=== PATIENT | male | born 1960 | race Caucasian/White ===

== ENCOUNTER 2018-03-11 16:16 | Emergency (ER) | payer OTHER ==
[~2018-03-11] VITALS: Ht 170.2 cm; Wt 83.6 kg
[2018-03-11] MEDS ORDERED: AMLODIPINE BESYL5 MG PO (16:41)
[2018-03-11] MEDS ORDERED: LOSARTAN POTAS100 MG PO (16:41)
[2018-03-11] MEDS ORDERED: ASPIR 8181 M1 PO (16:42)
[2018-03-11] MEDS ORDERED: MOTRIN600 MG PO (19:13)
[2018-03-11] MEDS ORDERED: KEFLEX500 MG PO (19:13)
[2018-03-11] MEDS ORDERED: ULTRAM50 MG PO (19:13)
[2018-03-11 19:22] VITALS: BP 138/84
== END 2018-03-11 19:23 | disposition home or self-care (01) ==
LOC: EME 16:16
DX: L02.511 Cutaneous abscess of right hand (principal); L03.113 Cellulitis of right upper limb; I10 Essential (primary) hypertension; E78.5 Hyperlipidemia, unspecified; Z88.0 Allergy status to penicillin; Z87.891 Personal history of nicotine dependence
CPT/HCPCS: 73130; 99281; 99283